=== PATIENT | female | born 1950 | race Caucasian/White ===

== ENCOUNTER → 2018-03-19 08:25 | Outpatient (CLI) | payer MEDICARE, MEDICAID, SELFPAY | PROVIDERS: Family Provider Internal Medicine Infectious Disease; PCP Internal Medicine Infectious Disease; Visit Provider Surgery | DX: N63.10 Unspecified lump in the right breast, unspecified quadrant (principal); R92.8 Other abnormal and inconclusive findings on diagnostic imaging of breast | CPT/HCPCS: 76642; 77062; 77066; G0279 ==

== ENCOUNTER → 2018-03-29 16:00 | Outpatient (CLI) | payer MEDICARE, MEDICAID, SELFPAY ==
--- NOTE | 2018-03-29 | BRBX_PTH ---
PATIENT: ISMAEL ZARATE LOC: [facility] U#:[id number] AGE/SX: 75/F ROOM: RE03/29/[address]: Dr. Leanne Alba MD : 1950 BED: DIS: SPEC #: [id number] RECD: 03/29/18 16:00 STATUS: ANTHONY MONY #: [id number] REMBERTO: 03/29/18 00:[address]: Leanne Alba DEPT: SURGICAL PATHOLOGY RECD BY: Alison Oro Tissues: Right breast, NOS Procedures: Surgery Specimen Level IV Comments: @ Specimen number changed from [id number] to [id number] @ on 04/02/18 at 0916 by DENIS. HEADER OPERATION: Right breast core biopsy PRE-OP DIAGNOSIS: Right breast mass, retroareolar at 6 o?clock TISSUE SUBMITTED: Right breast tissue, retroareolar at 6 o?clock ISCHEMIC TIME: 1 minute MICROSCOPIC DIAGNOSIS Right breast tissue, retroareolar at 6 o?clock, core biopsy: Invasive ductal carcinoma, nuclear grade 2 (0.6 cm in greatest length). MELINDA:denton 04/03/18 COMMENT Immunohistochemistry ([id number]) supports the above diagnosis. ER/UT/Xac2fyx studies are being performed on sections of tumor and the results from this study will be reported separately ([id number]). Case has been reviewed in consultation with Dr. Galicia who concurs with the above diagnosis. IDC:AM MICROSCOPIC DESCRIPTION Slides are reviewed. GROSS DESCRIPTION Received in fixative is one container labeled with the patient's name and designated right breast. The specimen consists of multiple elongated fragments of ansari-yellow fibroadipose tissue that in aggregate measure 1 x 0.2 x 0.1 cm. The entire specimen is submitted in one cassette. / Gisela 04/02/18 TC:0 CPT: 47019
--- NOTE | 2018-03-29 | IMM_PTH ---
PATIENT: ISMAEL ZARATE LOC: [facility] U#:[id number] AGE/SX: 75/F ROOM: RE03/29/[address]: Dr. Leanne Alba MD : 1950 BED: DIS: SPEC #: [id number] RECD: 04/03/18 10:17 STATUS: ANTHONY REQ #: [id number] REMBERTO: 03/29/18 00:[address]: eLanne Alba DEPT: IMMUNOHISTOCHEMISTRY RECD BY: Vivi Grimm Tissues: Right breast, NOS Procedures: CALPONIN-1 (add) CK5-6 (add) CK8 (add) E-CAD (add) HER2 DEL (add) KI-67 (add) P53 (add) FL (add) P40 (add) ER (initial) PHYSICIAN & INSTITUTION [place] [id number] SPECIMEN INFORMATION: Tissue Source: Right breast tissue, retroareolar at 6 o?clock Clinical Info: Right breast mass, retroareolar at 6 o?clock Specimen Number: [id number] CPT code: 71819, 56346 x6, 10447 x3 METHODOLOGY: Deparaffinized sections of prefer/formalin-fixed tissue or PAP/DQ stained slides are incubated with monoclonal/polyclonal antibodies/oligonucleotide probes. Localization is made via biotin free immunoperoxidase method. Appropriate controls are performed and reacted as expected. Results on target cell population are indicated in the following table: RESULTS: ANTIBODY / CLONE RESULT E-Cad (ECH-6) positive CK8 (46zypuS12) positive CK5-6 (D5 & 1684) negative Ki-67 (30-9) positive, low P53 (DO-7) positive, rare cells and weak P40 (BC28) negative Calponin-1 (HJ549I) negative MORPHOMETRIC ANALYSIS ER (clone 6F11) >95%, strong FL (clone 16/1E2) 4-17%, moderate Her-2Neu (clone CB11) 0 The prognostic test for HER2 is performed on formalin-fixed paraffin embedded tissue. A 3+ (positive) staining pattern is defined as intense, homogeneous, complete, circumferential membranous staining in >10% of contiguous tumor cells. A similar weak (2+) staining pattern is interpreted as equivocal. DAMIAN follow-up testing is recommended for all equivocal cases. Positivity/negativity for ER/FL is reported if > or < 1% of the tumor cells are immuno- reactive, respectively. The ASCO/CAP criteria is used for scoring. Reference: Journal of Clinical Oncology, 2013; 31:9750-0986 & 2010; 16:9259-7912. Duration of fixation: __ Hrs; Sample Adequate: Yes. These assays have not been validated on decalcified tissues. Results should be interpreted with caution given the likelihood of false negativity on decalcified specimens. These tests were developed and their performance characteristics determined by [facility]. They may not have been cleared or approved by the [place]. Food and Drug Administration. The FDA has determined that such clearance or approval is not necessary. INTERPRETATION: Right breast core biopsy: Invasive ductal carcinoma, nuclear grade 2. Positive for estrogen receptors (favorable prognostic indicator). Positive for progesterone receptors (favorable prognostic indicator). Negative for overexpression of PTB6swt. SJ:denton 04/03/18
== END ==
PROVIDERS: Visit Provider Surgery
DX: N63.10 Unspecified lump in the right breast, unspecified quadrant (principal)
CPT/HCPCS: 88305; 88341; 88342